=== PATIENT | male | born 1985 ===

== ENCOUNTER 2018-01-19 01:57 | Emergency (ER) | payer OTHER, SELFPAY ==
[2018-01-19 02:04] VITALS: O2SAT 100
--- NOTE | 2018-01-19 02:21 | ED PDOC ---
HPI: Abdomen Time Seen by Provider: 01/19/18 02:01 Chief Complaint (Nursing): Abdominal Pain Chief Complaint (Provider): Abdominal Pain History Per: Patient History/Exam Limitations: no limitations Onset/Duration Of Symptoms: Hrs (x3) Current Symptoms Are (Timing): Still Present Location Of Pain/Discomfort: Periumbilical Quality Of Discomfort: Unable To Describe Additional Complaint(s): 32 y/o male with no significant past medical history presents to the ED for evaluation of abdominal pain, onset three days. Patient reports of mild pain yesterday that resolved on its own. Patient additionally reports of one episode of vomiting at that time. Patient states pain reoccurred in the periumbilical region and is associated with bloating and nausea. Patient denies vomiting today and diarrhea. Patient described the pain as a 7/10. Patient reports his last bowel movement was earlier today. PMD: None Provided Past Medical History Reviewed: Historical Data, Nursing Documentation, Vital Signs Vital Signs: Last Vital Signs Temp 97.6 F 01/19/18 02:01 Pulse 58 L 01/19/18 02:01 Resp 20 01/19/18 02:01 BP 127/82 01/19/18 02:01 Pulse Ox 100 01/19/18 02:01 - Medical History PMH: No Chronic Diseases - Surgical History Surgical History: No Surg Hx - Family History Family History: States: Unknown Family Hx - Social History Current smoker - smoking cessation education provided: No Alcohol: None Drugs: Denies - Home Medications Home Medications: Ambulatory Orders Medication Instructions Recorded Famotidine [Pepcid] 20 mg PO Q12 #14 tab 01/19/18 Ondansetron ODT [Zofran ODT] 4 mg PO Q6H PRN #16 odt 01/19/18 - Allergies Allergies/Adverse Reactions: Allergies Allergy/AdvReac Type Severity Reaction Status Date / Time No Known Allergies Allergy Verified 01/19/18 02:04 Review of Systems ROS Statement: Except As Marked, All Systems Reviewed And Found Negative Gastrointestinal: Positive for: Nausea, Vomiting, Abdominal Pain. Negative for: Diarrhea Physical Exam - Reviewed Nursing Documentation Reviewed: Yes Vital Signs Reviewed: Yes - Physical Exam Appears: Positive for: No Acute Distress, Uncomfortable Head Exam: Positive for: ATRAUMATIC, NORMOCEPHALIC Skin: Positive for: Normal Color, Warm, Dry Eye Exam: Positive for: Normal appearance, EOMI, PERRL Neck: Positive for: Normal, Painless ROM Cardiovascular/Chest: Positive for: Regular Rate, Rhythm. Negative for: Murmur Respiratory: Positive for: Normal Breath Sounds. Negative for: Respiratory Distress Gastrointestinal/Abdominal: Positive for: Normal Exam, Soft, Tenderness (periumbilical tenderness) Back: Positive for: Normal Inspection. Negative for: L CVA Tenderness, R CVA Tenderness, Vertebral Tenderness Extremity: Positive for: Normal ROM. Negative for: Pedal Edema, Deformity Neurologic/Psych: Positive for: Alert, Oriented. Negative for: Motor/Sensory Deficits - Laboratory Results Result Diagrams: 01/19/18 02:43 01/19/18 02:43 - ECG O2 Sat by Pulse Oximetry: 100 (RA) Pulse Ox Interpretation: Normal Medical Decision Making Medical Decision Making: Time: 215 Impression: 32 y/o male with abdominal pain. Plan: -- CT Abd/Pelvis IV Contrast Only -- CMP -- Lipase -- ED Urine Dipstick -- CBC with differentials -- Pepcid 20 mg IV -- Toradol 30 mg IV -- Zofran INJ 4 mg IV -- Heplock Insertion -- Urinalysis Time: 043 CT RESULTS COMMENTS: Fluid-filled mildly distended stomach. Fluid-filled mildly dilated small bowel loops. Transition zone in the right lower quadrant. The liver is of uniform attenuation without mass or defect. There is no intra or extrahepatic biliary ductal dilatation. The spleen is normal. The gallbladder is within normal limits. The pancreas is of normal contour and attenuation characteristics. There is no evidence of adrenal mass. Both kidneys demonstrate prompt and equal nephrograms. The kidneys are normal in size, shape and configuration. There is no evidence of renal or ureteral mass. No renal or ureteral calculi are identified. There is no hydroureter or hydronephrosis. Prior appendectomy There is no bowel wall thickening. There is no evidence of abdominal ascites or lymphadenopathy. There is no evidence of intrinsic or extrinsic bladder mass. There is no pelvic ascites or lymphadenopathy. Images of the lung bases show no evidence of pleural or parenchymal mass. There are no pleural effusions. The bony structures are free of lytic or blastic lesions. IMPRESSION: Fluid-filled mildly distended stomach. Fluid-filled mildly dilated small bowel loops. Transition zone in the right lower quadrant. Ileus versus developing partial/low grade small bowel obstruction. No bowel perforation or pneumatosis intestinalis. Thank you for your kind referral of this patient. Electronically signed on Jan 19, 2018 4:34:25 AM EDT by: Rojelio Viramontes M.D., Certified by ABR, MSK, Neuroradiology Time: 454 -- Spoke to manager surgical, Dr. Cooper who will see the patient in the ER for a surgical consultation. Time: 0700 -- Patient endorsed to Dr. Choudhury, pending surgical re-evaluation and CT read by an in-house radiologist Scribe Attestation: Documented by Corey Oshea, acting as a scribe for Juan M Pacheco MD. Provider Scribe Attestation: All medical record entries made by the Scribe were at my direction and personally dictated by me. I have reviewed the chart and agree that the record accurately reflects my personal performance of the history, physical exam, medical decision making, and the department course for this patient. I have also personally directed, reviewed, and agree with the discharge instructions and disposition. Disposition - Clinical Impression Clinical Impression: Abdominal pain, Ileus - [facility]position [facility] Disposition: Routine/Home Disposition Time: 07:00 Condition: STABLE Prescriptions: Famotidine [Pepcid] 20 mg PO Q12 #14 tab Ondansetron ODT [Zofran ODT] 4 mg PO Q6H PRN #16 odt PRN Reason: Nausea/Vomiting Instructions: Acute Abdomen (Belly Pain) Forms: [employer] (Bhutanese) Print Language: SAUDI ARABIAN Patient Signed Over To: Huma Choudhury
[2018-01-19 02:46] LABS: BASO % 0.7 % (0.0-2.0); EOS # 0.2 K/uL (0.0-0.7); EOS % 3.5 % (0.0-4.0); HEMOGLOBIN 16.4 g/dL (12.0-18.0); LYMPH # 1.8 K/uL (1.0-4.3); LYMPH % 33.3 % (20.0-40.0); MEAN CELL VOLUME 87.5 fl (80.0-94.0); MEAN CORPUSCULAR HGB CONC 34.3 g/dL (33.0-37.0); MEAN PLATELET VOLUME 8.4 fl (7.2-11.7); MONO # 0.4 K/uL (0.0-0.8); MONO % 8.4 % (0.0-10.0); NEUT # 2.9 K/uL (1.8-7.0); NEUT % 54.1 % (50.0-75.0); RBC 5.45 Mil/uL (4.40-5.90); WHITE BLOOD COUNT 5.3 K/uL (4.8-10.8)
[2018-01-19 02:55] LABS: ALB/GLOB RATIO 1.2 (1.0-2.1); ALBUMIN 4.4 g/dL (3.5-5.0); ALT/SGPT 53 U/L (21-72); AST/SGOT 39 U/L (17-59); BLOOD UREA NITROGEN 14 mg/dl (9-20); CALCIUM 9.1 mg/dL (8.4-10.2); GFR NON-AFRICAN AMERICAN > 60; LIPASE 140 U/L (23-300)
[2018-01-19] MEDS ORDERED: Iohexol 300 100 ML IJ ONE (03:17)
[2018-01-19] MEDS ORDERED: Sodium Chloride 0.9% 50 ML IV ONE (03:17)
--- NOTE | 2018-01-19 07:32 | CP.PCM.CON ---
History of Present Illness - History of Present Illness History of Present Illness: Surgery: Dr. Ely CC: Abd pain HPI: 32M w. no pmh presents w. periumbilical abd pain which began at 9 o'clock last night. Pain is was constant and described as strong. Pt has never had this pain before. The pt denies N/V/D. No constipation. He is passing flatus. He does state that he had increased burping. He denies any changes in appetite. He denies F/C. Blood work done in ED is unremarkable and pt's pain is currently resolved. PMH: none PSH: none Meds: none NKDA Social: No ETOH/tobacco/drugs Fhx: non-contributory Review of Systems - Review of Systems All systems: reviewed and no additional remarkable complaints except (HPI) Past Patient History - Past Social History Smoking Status: Never Smoked - PSYCHIATRIC Hx Substance Use: No Meds Home Medications: Home Medication List Medication Instructions Recorded Confirmed Type Famotidine [Pepcid] 20 mg PO Q12 #14 tab 01/19/18 Rx Ondansetron ODT [Zofran ODT] 4 mg PO Q6H PRN #16 odt 01/19/18 Rx Allergies/Adverse Reactions: Allergies Allergy/AdvReac Type Severity Reaction Status Date / Time No Known Allergies Allergy Verified 01/19/18 02:04 Physical Exam - Constitutional Appears: Non-toxic, No Acute Distress - Head Exam Head Exam: ATRAUMATIC, NORMOCEPHALIC - Eye Exam Eye Exam: EOMI - ENT Exam ENT Exam: Mucous Membranes Moist - Neck Exam Neck exam: Positive for: Full Rom - Respiratory Exam Respiratory Exam: NORMAL BREATHING PATTERN. absent: Accessory Muscle Use, Respiratory Distress - GI/Abdominal Exam GI & Abdominal Exam: Soft. absent: Distended, Firm, Guarding, Rigid, Tenderness - Extremities Exam Extremities exam: Negative for: calf tenderness, pedal edema - Neurological Exam Neurological exam: Alert, Oriented x3 Results - Vital Signs Recent Vital Signs: Last Vital Signs Temp 97.6 F 01/19/18 02:01 Pulse 58 L 01/19/18 02:01 Resp 20 01/19/18 02:01 BP 127/82 01/19/18 02:01 Pulse Ox 100 01/19/18 06:06 - Labs Result Diagrams: 01/19/18 02:43 01/19/18 02:43 Labs: Laboratory Results - last 24 hr 01/19/18 01/19/18 02:43 02:43 WBC 5.3 RBC 5.45 Hgb 16.4 Hct 47.7 MCV 87.5 MCH 30.0 MCHC 34.3 RDW 13.0 Plt Count 194 MPV 8.4 Neut % (Auto) 54.1 Lymph % (Auto) 33.3 Stephenson % (Auto) 8.4 Eos % (Auto) 3.5 Baso % (Auto) 0.7 Neut # (Auto) 2.9 Lymph # (Auto) 1.8 Stephenson # (Auto) 0.4 Eos # (Auto) 0.2 Baso # (Auto) 0.0 Sodium 139 Potassium 4.1 Chloride 101 Carbon Dioxide 27 Anion Gap 15 BUN 14 Creatinine 0.8 Est GFR ( Amer) > 60 Est GFR (Non-Af Amer) > 60 Random Glucose 104 Calcium 9.1 Total Bilirubin 0.7 AST 39 ALT 53 Alkaline Phosphatase 79 Total Protein 8.2 Albumin 4.4 Globulin 3.7 Albumin/Globulin Ratio 1.2 Lipase 140 - Imaging and Cardiology CT scan - abdomen Status: Image reviewed by me, Report reviewed by me Assessment & Plan - Assessment and Plan (Free Text) Assessment: 32M w. abd pain 2/2 questionable appendicitis w. fecalith / constipation / enteritis / PSBO -CT scan reviewed, there is discordance between my interpretation and the overnight interpretation -Recommend keep pt in observation in ED until official read is available -NPO and IVF in interim -discussed with attending Kenneth PGY4
--- NOTE | 2018-01-19 08:38 | CT ---
Date of service: 2018-01-19 03:23:46 PROCEDURE: CT abdomen pelvis 01/19/2018 HISTORY: abd pain Abdominal pain. COMPARISON: None. TECHNIQUE: Contiguous axial images of the abdomen and pelvis. Oral contrast was administered. No IV contrast given. Coronal and Sagittal reformats generated. Radiation dose: Total exam DLP = 299.2 mGy-cm. This CT exam was performed using one or more of the following dose reduction techniques: Automated exposure control, adjustment of the mA and/or kV according to patient size, and/or use of iterative reconstruction technique. FINDINGS: LOWER THORAX: Heart size within range of normal. No significant pericardial effusion. There is a small hiatal hernia. Lung bases are clear. No infiltrate effusion or basilar pneumothorax. Some minimal linear scarring seen in the left lung base and right middle lobe regions. LIVER: Liver is mildly enlarged measuring nearly 20 cm in CC dimension. Mild diffuse fatty hepatic infiltration. No obvious hepatic mass collection or calcification. Portal and splenic veins are opacified. GALLBLADDER AND BILE DUCTS: Gallbladder is physiologically distended. No evidence of intraluminal gallbladder calculi. PANCREAS: Unremarkable. No mass. No ductal dilatation. SPLEEN: Spleen exhibits normal size and attenuation pattern without mass collection or calcification. ADRENALS: No adrenal lesions seen. KIDNEYS AND URETERS: Kidneys demonstrate symmetric nephrograms. No stone or hydronephrosis. BLADDER: Grossly unremarkable. No evidence of intraluminal urinary bladder calculi. REPRODUCTIVE: Unremarkable. APPENDIX: There is an apparent appendicolith at the mouth of a appears represent residual short and/or stump of the appendix BOWEL: Evaluation of the bowel is somewhat limited due to the lack of oral contrast material. Stomach is distended with food debris liquid and air.. There are several mildly distended thick-walled fluid-filled loops of small bowel in the left lower abdomen and pelvis suggesting a localized enteritis and secondary ileus. Findings are not felt to represent a complete small bowel obstruction this time. Repeat CT scan at interval could be performed to exclude partial and or intermittent small bowel obstruction. There is a large amount of stool seen within the large bowel consistent with fecal retention/constipation. PERITONEUM: Unremarkable. No fluid collection. No free air. LYMPH NODES: Unremarkable. No enlarged lymph nodes. VASCULATURE: No atherosclerotic calcification and mural plaque present. No evidence of abdominal aortic or iliac artery aortic aneurysm. BONES: No fracture or destructive lesion. OTHER FINDINGS: None. IMPRESSION: Mild hepatomegaly and fatty infiltration. Findings suggest localized enteritis and secondary ileus involving multiple loops of distal small bowel however. Repeat CT scan at interval could be performed to exclude partial and or intermittent small bowel obstruction. There appears to be a short residual stump of the appendix which contains a appendicolith apparently located at the ostia of the appendix in this patient who is status post appendectomy. Findings also consistent with constipation.
--- NOTE | 2018-01-19 08:46 | ED PDOC ---
- Laboratory Results Result Diagrams: 01/19/18 02:43 01/19/18 02:43 - ECG O2 Sat by Pulse Oximetry: 100 (RA) Medical Decision Making Medical Decision Making: Time: 0700 --Patient signed out to this provider by Dr. Pacheco, pending surgical consult and CT. Time: 833 CT Abdomen FINDINGS: LOWER THORAX: Heart size within range of normal. No significant pericardial effusion. There is a small hiatal hernia. Lung bases are clear. No infiltrate effusion or basilar pneumothorax. Some minimal linear scarring seen in the left lung base and right middle lobe piter ons. LIVER: Liver is mildly enlarged measuring nearly 20 cm in CC dimension. Mild diffuse fatty hepatic infiltration. No obvious hepatic mass collection or calcification. Portal and splenic veins are opacified. GALLBLADDER AND BILE DUCTS: Gallbladder is physiologically distended. No evidence of intraluminal gallbladder calculi. PANCREAS: Unremarkable. No mass. No ductal dilatation. SPLEEN: Spleen exhibits normal size and attenuation pattern without mass collection or calcification. ADRENALS: No adrenal lesions seen. KIDNEYS AND URETERS: Kidneys demonstrate symmetric nephrograms. No stone or hydronephrosis. BLADDER: Grossly unremarkable. No evidence of intraluminal urinary bladder calculi. REPRODUCTIVE: Unremarkable. APPENDIX: There is an apparent appendicolith at the mouth of a appears represent residual short and/or stump of the appendix BOWEL: Evaluation of the bowel is somewhat limited due to the lack of oral contrast material. Stomach is distended with food debris liquid and air.. There are several mildly distended thick-walled fluid-filled loops of small bowel in the left lower abdomen and pelvis suggesting a localized enteritis and secondary ileus. Findings are not felt to represent a complete small bowel obstruction this time. Repeat CT scan at interval could be performed to exclude partial and or intermittent small bowel obstruction. There is a large amount of stool seen within the large bowel consistent with fecal retention/constipation. PERITONEUM: Unremarkable. No fluid collection. No free air. LYMPH NODES: Unremarkable. No enlarged lymph nodes. VASCULATURE: No atherosclerotic calcification and mural plaque present. No evidence of abdominal aortic or iliac artery aortic aneurysm. BONES: No fracture or destructive lesion. OTHER FINDINGS: None. IMPRESSION: Mild hepatomegaly and fatty infiltration. Findings suggest localized enteritis and secondary ileus involving multiple loops of distal small bowel however. Repeat CT scan at interval could be performed to exclude partial and or intermittent small bowel obstruction. There appears to be a short residual stump of the appendix which contains a appendicolith apparently located at the ostia of the appendix in this patient who is status post appendectomy. Findings also consistent with constipation. Time: 935 --Patient has been reevaluated by surgical team. Case discussed with Dr. Ely. According to surgical oncologist and Dr. Ely, patient is stable for disrcahge from surgical stand point. --Reviewed labs and CT, which demonstrate no clinically significant a bnormalities. Patient has improved and has no pain or complaints. As such, patient is stable for discharge home because there is no surgical need. Scribe Attestation: Documented by Carole Pierce, acting as a scribe for Huma Choudhury MD Provider Scribe Attestation: All medical record entries made by the Scribe were at my direction and personally dictated by me. I have reviewed the chart and agree that the record accurately reflects my personal performance of the history, physical exam, medical decision making, and the department course for this patient. I have also personally directed, reviewed, and agree with the discharge instructions and disposition. Disposition - Clinical Impression Clinical Impression: Abdominal pain, Ileus - POA Present On Arrival: None - Disposition [facility]] Disposition: Routine/Home Disposition Time: 09:36 Condition: GOOD Additional Instructions: YULIA HENDERSON, thank you for letting us take care of you today. Your provider was Huma Choudhury MD and you were treated for ABD PAIN. The emergency medical care you received today was directed at your acute symptoms. If you were prescribed any medication, please fill it and take as directed. It may take several days for your symptoms to resolve. Return to the Emergency Department if your symptoms worsen, do not improve, or if you have any other problems. Please contact your doctor or call one of the physicians/clinics you have been referred to that are listed on the Patient Visit Information form that is included in your discharge packet. Bring any paperwork you were given at discharge with you along with any medications you are taking to your follow up visit. Our treatment cannot replace ongoing medical care by a primary care provider outside of the emergency department. Thank you for allowing the [facility] team to be part of your care today. If you had an X-Ray or CT scan: A Radiologist will review the ED reading if any change in treatment is needed we will contact you. If you had a blood, urine, or wound culture: It will take several days for the results, if any change in treatment is needed we will contact you. If you had an STI test: It will take 48 hours for the results. Please call after 1 week if you have not heard back. Prescriptions: Famotidine [Pepcid] 20 mg PO Q12 #14 tab Ondansetron ODT [Zofran ODT] 4 mg PO Q6H PRN #16 odt PRN Reason: Nausea/Vomiting Instructions: Acute Abdomen (Belly Pain) Forms: [employer] (Vietnamese) Print Language: ISRAELI
[2018-01-19 09:12] LABS: URINE BILIRUBIN NEGATIVE (NEGATIVE); URINE BLOOD NEGATIVE (NEGATIVE); URINE CLARITY CLEAR (Clear); URINE COLOR YELLOW (YELLOW); URINE GLUCOSE (UA) NEG (Normal); URINE LEUKOCYTE ESTERASE NEG Leu/uL (Negative); URINE PROTEIN NEGATIVE (NEGATIVE); URINE UROBILINOGEN 0.2-1.0 mg/dL (0.2-1.0)
[2018-01-19 11:16] VITALS: BP 133/85; PULSE 68; RESP 18; TEMP 97.8
== END 2018-01-19 10:40 | disposition home or self-care (01) ==
LOC: H.ER 01:57
DX: K56.7 Ileus, unspecified (principal); R10.9 Unspecified abdominal pain; Z79.899 Other long term (current) drug therapy
CPT/HCPCS: 74177; 80053; 81003; 83690; 85025; 99283; J1885; Q9967

== ENCOUNTER 2018-03-15 16:23 | Emergency (ER) | payer OTHER ==
--- NOTE | 2018-03-15 18:11 | ED PDOC ---
HPI: Abdomen Time Seen by Provider: 03/15/18 17:24 Chief Complaint (Nursing): Abdominal Pain Chief Complaint (Provider): Abdominal Pain History Per: Patient, [facility] [employer] [facility] ([id number]) History/Exam Limitations: no limitations Onset/Duration Of Symptoms: Days (x2 months) Outside of [place] travel?: No Current Symptoms Are (Timing): Still Present Context: Food Location Of Pain/Discomfort: Epigastric, Periumbilical Quality Of Discomfort: Burning Associated Symptoms: Nausea. denies: Fever, Chills, Vomiting, Diarrhea, Loss Of Appetite, Back Pain, Chest Pain, Constipation, Urinary Symptoms Exacerbating Factors: Food (milk, beef, chocolate) Additional Complaint(s): 32 year old male with no significant past medical history presents to the ED with an intermittent burning sensation in the epigastric and periumbilical area for 2 months. Patient reports symptoms started after he ate fish soup. He has increased belching and nausea during this time. Patient reports pain has been mild, but became severe yesterday and was a 7 out of 10 in severity. At this time, patient describes pain as a 5 out of 10 in severity. Patient took no medications for pain. He denies any fever, hematuria, dysuria, urinary frequency/urgeny, hematochezia, sick contacts, recent travel, abdominal surgeries, or similar symptoms in the past. Patient states that eating milk, chocolate, and beef worsen his symptoms. PMD: none provided Past Medical History Reviewed: Historical Data, Nursing Documentation, Vital Signs Vital Signs: Last Vital Signs Temp 98.2 F 03/15/18 16:44 Pulse 69 03/15/18 16:44 Resp 16 03/15/18 16:44 BP 121/65 03/15/18 16:44 Pulse Ox 99 03/15/18 16:44 - Medical History PMH: No Chronic Diseases - Surgical History Surgical History: No Surg Hx - Family History Family History: States: Unknown Family Hx - Home Medications Home Medications: Ambulatory Orders Medication Instructions Recorded Famotidine [Pepcid] 20 mg PO Q12 #14 tab 01/19/18 Ondansetron ODT [Zofran ODT] 4 mg PO Q6H PRN #16 odt 01/19/18 Famotidine [Pepcid] 40 mg PO DAILY #14 tablet 12/14/18 Mag Hydrox/Aluminum Hyd/Simeth 10 ml PO Q6 PRN #200 ml 03/15/18 [Maalox Maximum Strength Susp] - Allergies Allergies/Adverse Reactions: Allergies Allergy/AdvReac Type Severity Reaction Status Date / Time No Known Allergies Allergy Verified 03/15/18 16:43 Review of Systems ROS Statement: Except As Marked, All Systems Reviewed And Found Negative Constitutional: Negative for: Fever Gastrointestinal: Positive for: Nausea, Abdominal Pain. Negative for: Vomiting, Diarrhea, Hematochezia Genitourinary Male: Negative for: Dysuria, Frequency, Hematuria Physical Exam - Reviewed Nursing Documentation Reviewed: Yes Vital Signs Reviewed: Yes - Physical Exam Comments: GENERAL APPEARANCE: Patient is awake, alert, oriented x 3, in no distress. Resting comfortably. SKIN: Warm, dry; (-) cyanosis. EYES: (-) conjunctival pallor, (-) scleral icterus. ENMT: Mucous membranes moist. NECK: Supple, FROM CHEST AND RESPIRATORY: (-) rales, (-) rhonchi, (-) wheezes; breath sounds equal bilaterally. Respirations even and nonlabored. HEART AND CARDIOVASCULAR: (-) irregularity ABDOMEN AND GI: Soft(-) distention. Bowel sounds active x4; (+)mild epigastric tenderness (-) guarding, (-) rebound, (-) palpable masses, (-) CVA tenderness. EXTREMITIES: (-) deformity NEURO AND PSYCH: Mental status as above; (-) focal findings. Gait: steady. Speech: clear. (-) facial asymmetry - Laboratory Results Result Diagrams: 03/15/18 19:25 03/15/18 19:25 Urine dip results: Positive for: Nitrate (positive). Negative for: Leukocyte Esterase, Blood, Ketones, Glucose, Bilirubin, Protein - ECG O2 Sat by Pulse Oximetry: 99 (RA) Pulse Ox Interpretation: Normal Medical Decision Making Medical Decision Making: Time: 1744 Clinical Impression: Abdominal pain, likely acid reflux Initial Plan: --CMP --Lipase --Urine dip --CBC with differentials --Pepcid 40 mg IVP --Toradol 30 g IVP --Zofran 4 mg IVP 1934 Udip reviewed (+) nitrate (-) leukocytes. U/A and U/C ordered. 2004 CBC and CMP unremarkable. Lipase WNL. Pending U/A. 2054 U/A unremarkable. On re-evaluation, patient reports improvement of symptoms. On exam, patient remains AAOx3, in no acute distress. Lungs clear to auscultation, cardiac RRR, abdomen soft, non-tender, repeat neuro exam shows no focal findings. Vitals stable. Lab/Diagnostic results d/w the patient in great detail. Diagnosis of abdominal pain, GERD d/w the patient. Based on history, exam and diagnostic results, plan will be for outpatient follow up. Patient instructed to follow-up with pmd / referral provided / the clinic in 1- 2 days without fail. Advised to take medication as prescribed. Return to the emergency room at any time for any new or worsening symptoms. Patient states he fully agrees with and understands discharge instructions. States that he agrees with the plan and disposition. Verbalized and repeated discharge instructions and plan. I have given the patient opportunity to ask any additional questions. Scribe Attestation: Documented by Carole Pierce, acting as a scribe for Rocío Kelly PA-C. Provider Scribe Attestation: All medical record entries made by the Scribe were at my direction and personally dictated by me. I have reviewed the chart and agree that the record accurately reflects my personal performance of the history, physical exam, medical decision making, and the department course for this patient. I have also personally directed, reviewed, and agree with the discharge instructions and disposition. Disposition - Clinical Impression Clinical Impression: GERD (gastroesophageal reflux disease), Abdominal pain in male - Patient ED Disposition Is Patient to be Admitted: No Counseled Patient/Family Regarding: Studies Performed, Diagnosis, Need For Followup, Rx Given - Disposition Referrals: [facility] [Outside] Frankie Bahena MD [Staff Provider] - Disposition: Routine/Home Disposition Time: 21:00 Condition: STABLE Additional Instructions: La atencin mdica de emergencia que recibi hoy se dirigi a jovanni sntomas agudos. Si le recetaron algn medicamento, llnelo y tmelo segn las indicaciones. Los sntomas pueden tardar varios medley en resolverse. Regrese al Departamento de Emergencias si jovanni sntomas empeoran, no mejoran o si tiene otros problemas. Comunquese con cornejo mdico dentro de 2 medley para maile nueva evaluacin y luis f un seguimiento o llame a dolores de los mdicos / clnicas a los que ford sido referido y que figuran en el formulario de Informacin de visita al paciente que se incluye en cornejo paquete de leona. Lleve todos los documentos que le entregaron al momento del leona junto con todos los medicamentos que est tomando para cornejo visita de seguimiento. Nuestro tratamiento no puede reemplazar la atencin mdica continua por parte de un proveedor de atencin primaria (PCP) fuera del departamento de emergencias. Prescriptions: Famotidine [Pepcid] 40 mg PO DAILY #14 tablet Mag Hydrox/Aluminum Hyd/Simeth [Maalox Maximum Strength Susp] 10 ml PO Q6 PRN #200 ml PRN Reason: Dyspepsia Instructions: Acid Reflux (Gastroesophageal Reflux Disease), Adult (DC), Acute Abdomen (Belly Pain), Nausea and Vomiting, Adult (DC) Forms: [employer] (Belarusian) Print Language: POLISH - POA Present On Arrival: None Results - Lab Results Lab Results: 03/15/18 03/15/18 03/15/18 19:51 19:25 19:25 WBC 6.3 RBC 5.19 Hgb 15.8 Hct 44.8 MCV 86.2 MCH 30.4 MCHC 35.3 RDW 12.7 Plt Count 199 MPV 8.3 Neut % (Auto) 57.2 Lymph % (Auto) 29.8 [place] % (Auto) 9.3 Eos % (Auto) 2.9 Baso % (Auto) 0.8 Neut # (Auto) 3.6 Lymph # (Auto) 1.9 [place] # (Auto) 0.6 Eos # (Auto) 0.2 Baso # (Auto) 0.0 Sodium 139 Potassium 4.1 Chloride 107 Carbon Dioxide 25 Anion Gap 11 BUN 14 Creatinine 0.8 Est GFR ( Amer) > 60 Est GFR (Non-Af Amer) > 60 Random Glucose 96 Calcium 8.7 Total Bilirubin 0.5 AST 43 ALT 33 Alkaline Phosphatase 81 Total Protein 7.6 Albumin 4.3 Globulin 3.2 Albumin/Globulin Ratio 1.3 Lipase 142 Urine Color Yellow Urine Clarity Slighty-cloudy Urine pH 7.0 Ur Specific [place] 1.021 Urine Protein Negative Urine Glucose (UA) Neg Urine Ketones Negative Urine Blood Negative Urine Nitrate Negative Urine Bilirubin Negative Urine Urobilinogen 0.2-1.0 Ur Leukocyte Esterase Neg Urine RBC (Auto) 1 Urine Microscopic WBC < 1 Urine Bacteria Rare
[2018-03-15 19:34] LABS: BASO % 0.8 % (0.0-2.0); EOS # 0.2 K/uL (0.0-0.7); EOS % 2.9 % (0.0-4.0); HEMOGLOBIN 15.8 g/dL (12.0-18.0); LYMPH # 1.9 K/uL (1.0-4.3); LYMPH % 29.8 % (20.0-40.0); MEAN CELL VOLUME 86.2 fl (80.0-94.0); MEAN CORPUSCULAR HEMOGLOBIN 30.4 pg (27.0-31.0); MEAN CORPUSCULAR HGB CONC 35.3 g/dL (33.0-37.0); MEAN PLATELET VOLUME 8.3 fl (7.2-11.7); MONO # 0.6 K/uL (0.0-0.8); MONO % 9.3 % (0.0-10.0); NEUT # 3.6 K/uL (1.8-7.0); NEUT % 57.2 % (50.0-75.0); NRBC % 0.1 % (0.0-0.0); RBC 5.19 Mil/uL (4.40-5.90); RED CELL DISTRIBUTION WIDTH 12.7 % (11.5-14.5); WHITE BLOOD COUNT 6.3 K/uL (4.8-10.8)
[2018-03-15 19:47] LABS: ALB/GLOB RATIO 1.3 (1.0-2.1); ALBUMIN 4.3 g/dL (3.5-5.0); ALT/SGPT 33 U/L (21-72); AST/SGOT 43 U/L (17-59); BLOOD UREA NITROGEN 14 mg/dl (9-20); CALCIUM 8.7 mg/dL (8.4-10.2); GFR NON-AFRICAN AMERICAN > 60; LIPASE 142 U/L (23-300)
[2018-03-15 20:02] LABS: URINE BACTERIA RARE (<OCC); URINE BILIRUBIN NEGATIVE (NEGATIVE); URINE BLOOD NEGATIVE (NEGATIVE); URINE CLARITY SLIGHTY-CLOUDY (Clear); URINE COLOR YELLOW (YELLOW); URINE GLUCOSE (UA) NEG (NEGATIVE); URINE LEUKOCYTE ESTERASE NEG Leu/uL (Negative); URINE PROTEIN NEGATIVE (NEGATIVE); URINE UROBILINOGEN 0.2-1.0 mg/dL (0.2-1.0)
[2018-03-15 21:31] VITALS: BP 114/60; PULSE 65; RESP 18; TEMP 98
[2018-03-16 13:47] VITALS: O2SAT 99
== END 2018-03-15 21:35 | disposition home or self-care (01) ==
LOC: H.ER 16:23
DX: K21.9 Gastro-esophageal reflux disease without esophagitis (principal)
CPT/HCPCS: 80053; 81003; 83690; 85025; 87086; 96374; 96375; 99284; J1885; J2405